=== PATIENT | female | born 1970 | race Caucasian/White ===

== ENCOUNTER → 2020-05-19 14:00 | Outpatient (BNVA) | payer OTHER, SELFPAY | PROVIDERS: Visit Provider Nurse Practitioner Family | DX: Z20.828 Contact with and (suspected) exposure to other viral communicable diseases (principal); R05 Cough; R51.9 Headache, unspecified; R53.83 Other fatigue; H65.02 Acute serous otitis media, left ear | CPT/HCPCS: 87635 ==

== ENCOUNTER → 2020-07-12 14:00 | Outpatient (BNVA) | payer OTHER, SELFPAY | PROVIDERS: PCP Family Medicine; Visit Provider Family Medicine | DX: Z20.828 Contact with and (suspected) exposure to other viral communicable diseases (principal); R50.9 Fever, unspecified; H66.90 Otitis media, unspecified, unspecified ear | CPT/HCPCS: 87635 ==